=== PATIENT | female | born 1950 | race Caucasian/White ===

== ENCOUNTER → 2017-02-05 | Outpatient (CLI) | payer OTHER | LOC: RAD 13:05 | DX: Z12.31 Encounter for screening mammogram for malignant neoplasm of breast (principal) ==

== ENCOUNTER → 2018-03-04 | Outpatient (CLI) | payer OTHER | LOC: RAD 01:18 | DX: Z12.31 Encounter for screening mammogram for malignant neoplasm of breast (principal) ==

== ENCOUNTER 2019-10-28 16:08 | Emergency (ER) | payer OTHER ==
[~2019-10-28] VITALS: Ht 162.6 cm; Wt 90.7 kg
[2019-10-28] MEDS ORDERED: HYDROCHLOROTH12.5 M2 PO (16:19)
[2019-10-28] MEDS ORDERED: PRILOSEC OTC20 MG PO (16:20)
[2019-10-28] MEDS ORDERED: LOSARTAN POTASS50 MG PO (16:20)
[2019-10-28 17:09] LABS: ABSOLUTE NEUTROPHILS 3.4 thou/uL (1.4-8.2); BASOPHILS 0.5 % (0.0-2.0); HEMATOCRIT 42.2 % (37.0-47.0); HEMOGLOBIN 13.6 gm/dL (12.0-15.0); LYMPHOCYTES 29.5 % (24.0-44.0); MCH 28.3 pg (26.0-34.0); MCHC 32.4 g/dL (28.0-37.0); MCV 87.6 fL (80.0-100.0); MONOCYTES 5.8 % (1.0-8.0); PLATELET COUNT 223 thou/uL (150-400); POLYS 60.2 % (36.0-66.0); RBC 4.81 mil/uL (4.20-5.00); WBC 5.7 thou/uL (4.0-11.0)
[2019-10-28 17:17] LABS: ANION GAP 13 mmol/L (7-16); BUN 19 mg/dL (7-18); CALCIUM 9.4 mg/dL (8.5-10.1); CHLORIDE 103 mmol/L (98-107); CO2 24 mmol/L (21-32); CREATININE 1.1 mg/dL (0.6-1.0); GLUCOSE 95 mg/dL (74-106); POTASSIUM 3.2 mmol/L (3.5-5.1); SODIUM 140 mmol/L (136-145)
[2019-10-28 17:27] LABS: ALBUMIN 3.8 g/dL (3.4-5.0); SGOT 14 U/L (15-37); SGPT 21 U/L (30-65); TOTAL BILIRUBIN 0.3 mg/dL (<0.1-1.0); TOTAL PROTEIN 7.8 g/dL (6.4-8.2); TROPONIN-I <0.06 ng/mL (<0.06)
[2019-10-28 20:52] VITALS: BP 129/77
--- NOTE | 2019-10-30 10:28 | EKG ---
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 : [id number] Requested By: Naman Walton Order Number: [id number] MD: Leo Borrego Measurements Intervals [place] Rate: 65 P: 34 MS: 174 QRS: -20 QRSD: 89 T: 18 QT: 394 QTc: 410 Interpretive Statements Sinus rhythm Borderline left axis deviation Low voltage, precordial leads Probable anteroseptal infarct, old Baseline wander in lead(s) V1 No previous ECG available for comparison Electronically Signed On 10-30-2019 10:27:51 [employer] by Leo Borrego [email or web address] <ELECTRONICALLY SIGNED> By: Leo Borrego MD 10/30/19 1027 1613 1613 MD ONDINA Jang
== END 2019-10-28 20:57 | disposition home or self-care (01) ==
LOC: ER 16:08
PROVIDERS: Emergency Medicine
DX: R07.89 Other chest pain (principal); R42 Dizziness and giddiness; I10 Essential (primary) hypertension; Z88.2 Allergy status to sulfonamides; Z79.899 Other long term (current) drug therapy; Z98.51 Tubal ligation status; Z98.890 Other specified postprocedural states

== ENCOUNTER → 2019-11-23 | Outpatient (CLI) | payer OTHER ==
[~2019-11-23] MED LIST: HYDROCHLOROTH12.5 M2 PO; LOSARTAN POTASS50 MG PO; PRILOSEC OTC20 MG PO
== END ==
LOC: CAT 12:34
DX: Z13.6 Encounter for screening for cardiovascular disorders (principal); I25.10 Atherosclerotic heart disease of native coronary artery without angina pectoris; E78.00 Pure hypercholesterolemia, unspecified